=== PATIENT | female | born 2000 | race Caucasian/White ===

== ENCOUNTER 2023-08-21 10:21 | Outpatient (CLI) | payer BC, SELFPAY ==
[2023-08-21 13:29] LABS: Chlamydia DNA Amplified* NOT DETECTED (No Detected); GC DNA Amplified* NOT DETECTED (No Detected)
== END 2023-08-21 10:22 | disposition home or self-care (01) ==
LOC: NFLDREF 10:22
PROVIDERS: Visit Provider Registered Nurse
DX: Z11.3 Encounter for screening for infections with a predominantly sexual mode of transmission (principal)
CPT/HCPCS: 87491; 87591